=== PATIENT | female | born 1990 | race African-American/Black ===

== ENCOUNTER 2024-01-02 18:52 | Emergency (ER) | payer BC ==
[~2024-01-02] VITALS: Ht 172.7 cm; Wt 90.0 kg
[2024-01-02 19:02] VITALS: O2SAT 100
[2024-01-02 20:08] LABS: EOSINOPHILS % 2.4 % (0.0-5.0); HEMATOCRIT. 34.4 % (36.0-48.0); HEMOGLOBIN. 11.4 g/dL (12.0-16.0); LYMPHOCYTES % 35.1 % (20.0-50.0); MEAN CORPUSCULAR HEMOGLOBIN 30.7 pg (28.0-32.0); MEAN CORPUSCULAR HGB CONC 33.1 g/dL (31.0-37.0); MEAN PLATELET VOLUME 9.6 fl (7.4-10.4); MONOCYTES % 6.9 % (2.0-8.0); NEUTROPHILS % 54.6 % (40.0-76.0); PLATELET 264 x1000/uL (130-400); RED CELL DISTRIBUTION WIDTH 15.5 % (11.6-14.6); WHITE BLOOD COUNT 8.6 x1000/uL (4.5-11.0)
[2024-01-02 20:13] LABS: CHLORIDE 110 mEq/L (98-107); POTASSIUM 4.4 mEq/L (3.5-5.1); SODIUM 144 mEq/L (136-145)
[2024-01-02 20:14] LABS: CARBON DIOXIDE 27 mEq/L (21-32)
[2024-01-02 20:15] LABS: CALCIUM 9.5 mg/dL (8.7-10.4)
[2024-01-02 20:18] LABS: HCG SCREEN NEGATIVE
[2024-01-02 20:19] LABS: CREATININE 0.8 mg/dL (0.6-1.0); GLUCOSE 96 mg/dL (70-105); UREA NITROGEN BLOOD 10 mg/dL (9-23)
[2024-01-02 21:08] LABS: CLARITY URINE TURBID (CLEAR); COLOR URINE RED (YELLOW); GLUCOSE URINE NEGATIVE (NEGATIVE); KETONES URINE NEGATIVE (NEGATIVE); LEUKOCYTE ESTERASE URINE 2+ (NEGATIVE); NITRITE URINE POSITIVE (NEGATIVE); OCCULT BLOOD URINE 2+ (NEGATIVE); PROTEIN URINE 2+ (NEGATIVE); SPECIFIC GRAVITY URINE 1.022 (1.005-1.030); UROBILINOGEN URINE 0.2 E.U./dL (0.2-1.0)
[2024-01-02 21:22] LABS: BACTERIA URINE 2+; RBC URINE TNTC /hpf (0-2); SQUAMOUS EPITHELIAL CELL URINE 1+ /lpf (RARE/1+)
[2024-01-02 22:30] VITALS: BP 132/90; PULSE 80; RESP 20; TEMP 98.2
[2024-01-02] MEDS ORDERED: CEPH500C2 MT (23:07)
== END 2024-01-02 22:30 | disposition home or self-care (01) ==
LOC: ER 18:52
DX: N93.9 Abnormal uterine and vaginal bleeding, unspecified (principal); Z98.890 Other specified postprocedural states
CPT/HCPCS: 36415; 76830; 76856; 80048; 81003; 84703; 85025; 86850; 86900; 99284

== ENCOUNTER → 2024-03-11 | Outpatient (CLI) | payer BC ==
[~2024-03-11] MED LIST: CEPH500C2 MT
== END | disposition home or self-care (01) ==
LOC: US 07:23
PROVIDERS: ATTEND Obstetrics & Gynecology
DX: R93.89 Abnormal findings on diagnostic imaging of other specified body structures (principal); N92.6 Irregular menstruation, unspecified
CPT/HCPCS: 76830; 76856